=== PATIENT | male | born 2005 | race Caucasian/White ===

== ENCOUNTER 2024-02-13 13:22 | Emergency (ER) | payer BC, SELFPAY ==
[2024-02-13 13:35] VITALS: BP 119/75; PULSE 77; RESP 20; TEMP 36.8; O2SAT 98; BMI 52.4
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
== END 2024-02-13 15:13 | disposition home or self-care (01) ==
PROVIDERS: Emergency Provider Student in an Organized Health Care Education/Training Program; PCP Nurse Practitioner Family
DX: S42.001A Fracture of unspecified part of right clavicle, initial encounter for closed fracture (principal)
CPT/HCPCS: 99282; 99283; 99284

== ENCOUNTER 2024-02-16 10:37 | Day surgery (SDC) | payer BC, SELFPAY ==
[2024-02-16] VITALS (16 sets, daily range): BP systolic 121–138; BP diastolic 73–93; PULSE 61–84; RESP 14–20; TEMP 36.2–36.8; O2SAT 94–100; BMI 24.3
[2024-02-16] MEDS: LACTATED RINGERS 1000 ML 1,000 ML 100 ML IV (10:45)
--- NOTE | 2024-02-16 11:30 | W.PM.H&PU ---
History & Physical Update History & Physical Update H&P Reviewed and patient assessed: No changes noted
--- NOTE | 2024-02-16 12:12 | W.ANESCHARGE ---
Anesthesia Charges Start Date/Time Anesthesia Start Date: 02/16/24 Anesthesia Start Time: 11:50 Stop Date/Time Anesthesia Stop Date: 02/16/24 Anesthesia Stop Time: 13:22
--- NOTE | 2024-02-16 12:30 | CRLHL7_ITS ---
For Patients: As a result of the Cures Act, medical imaging exams and procedure reports are released immediately into your electronic medical record. You may view this report before your referring provider. If you have questions, please contact your health care provider. Indication: RT INTRA OP ORIF CLAVICLE Technique: Three fluoroscopic images of the right clavicle. Fluoroscopic time 4.6 seconds. IMPRESSION: Fluoroscopic guidance for ORIF right clavicle fracture. Dictated by Geoff Ellis MD @ 02/17/2024 9:48:50 AM (Electronically Signed)
--- NOTE | 2024-02-16 13:04 | PM.ORPRC ---
Procedure Note Date of procedure: 02/16/24 Procedure: PREOPERATIVE DIAGNOSES: 1. Right midshaft clavicle fracture with 120+ percent displacement and 15+ mm of shortening in a skeletally mature 18-year-old male, closed, acute POSTOPERATIVE DIAGNOSES: 1. Right midshaft clavicle fracture with 120+ percent displacement and 15+ mm of shortening in a skeletally mature 18-year-old male, closed, acute NAME OF OPERATION: 1. Right clavicle open reduction and internal fixation 2. 70448 - intraoperative fluoroscopy up to 1 hour. SURGEON: Alex Dhaliwal MD RETAIL BEAUT[employer] SPECIALIST: René Harrington PA-C - Of note, an administrative support assistant was critical for this case to aide in patient positioning, limb manipulation, tissue retraction, awareness of and protection of critical structures, closure, and immobilization application. ANESTHESIA: General IMPLANTS: Arthrex clavicle plate with 3.5 mm nonlocking and locking screws. TOURNIQUET: None. INDICATIONS: The patient is a pleasant, 18-year-old male who sustained a fall given the significant displacement and shortening of the fracture, surgery is indicated to realign the fracture and stabilized with plate and screws. FINDINGS: Closed, primarily transverse midshaft clavicle fracture with substantial shortening and displacement. PROCEDURE: Following a thorough discussion of risks, benefits, and alternatives, consent was obtained and the operative extremity was marked. The patient was brought to the operating room and placed supine on the operating table. Induction of anesthesia was achieved. Appropriate time out was performed identifying proper patient, site and procedure. 2 g IV Ancef was administered within 1 hour of incision preoperatively. The right upper extremity was prepped and draped in the appropriate sterile fashion using ChloraPrep. The skin was anesthetized with 0.25% Marcaine with epinephrine for both local anesthesia and hemostasis. Following this, sharp dissection through skin allowed evaluation of crossing neurologic structures. The periosteum was released, and subperiosteal elevation performed. The fracture ends were cleared of interposed muscle and fracture hematoma. The 2 ends were grasped with a lobster claw to help gain length. Excellent reduction was achieved. An 8 hole plate was selected. It was contoured according to the bone shape. [Cortical nonlocking compression screws were placed on either side of the fracture initially. After confirming proper reduction on C-arm fluoroscopic imaging, a 2nd and 3rd screw was placed on either side of the fracture.] Again C-arm was utilized to confirm proper screw length, fracture reduction, and plate apposition. At this stage, the wound was thoroughly irrigated with normal saline. Closure performed with 0 stratafix for the periosteum/platysma. Closure was then completed with 2-0 Vicryl for the subcutaneous, and 4-0 Monocryl for subcuticular closure. Dressings were applied along with a sling. The patient was awoken from anesthesia and transferred to PACU in stable condition. PLAN: 1. Nonweightbearing operative extremity. 2. Ice, acetominphen or ibuprofen PRN. 3. Oxycodone for pain as needed. 4. Follow up with me in 10-16 days for wound check.
--- NOTE | 2024-02-16 13:27 | W.ANESCHARGE ---
Anesthesia Charges Start Date/Time Anesthesia Start Date: 02/16/24 Anesthesia Start Time: 11:50 Stop Date/Time Anesthesia Stop Date: 02/16/24 Anesthesia Stop Time: 13:22
[2024-02-16] MEDS: fentaNYL 100 MCG/2 ML inj 50 MCG IVP ×2 (13:56→14:06)
[2024-02-16] MEDS: OXYCODONE 5 MG TABLET PO (14:24)
[2024-02-16] MEDS: ACETAMINOPHEN 325 MG TABLET PO (14:24)
[2024-02-16] MEDS: IBUPROFEN 200 MG TABLET 400 MG PO (14:24)
== END 2024-02-16 15:03 | disposition home or self-care (01) ==
PROVIDERS: PCP Nurse Practitioner Family; Visit Provider Orthopaedic Surgery Sports Medicine
PROC: (CPT 23515; principal; 2024-02-16 13:30)
DX: S42.021A Displaced fracture of shaft of right clavicle, initial encounter for closed fracture (principal)
CPT/HCPCS: 23515; 00450; 73000; 76000; A9270; C1713; J0330; J1100; J1171; J2250; J2405; J2704; J3010; J3490; J7120

== ENCOUNTER 2024-04-17 13:35 | Outpatient (RCR) | payer BC, SELFPAY | END 2024-08-15 23:59 | disposition home or self-care (01) | PROVIDERS: PCP Nurse Practitioner Family; Visit Provider Orthopaedic Surgery Sports Medicine | DX: Z98.890 Other specified postprocedural states (principal); M25.511 Pain in right shoulder; Z74.09 Other reduced mobility; M25.311 Other instability, right shoulder; R29.898 Other symptoms and signs involving the musculoskeletal system; Z51.89 Encounter for other specified aftercare | CPT/HCPCS: 97110; 97162 ==